=== PATIENT | female | born 1990 | race Caucasian/White ===

== ENCOUNTER 2017-10-09 23:41 | Emergency (ER) | payer OTHER, MEDICAID ==
[~2017-10-09] VITALS: Ht 165.1 cm; Wt 90.7 kg
[~2017-10-09 23:41] MED LIST: ACETAMINOPHEN-1 EAC1 PO; AMOXICILLIN 50500 MG PO; FLEXERIL PO; IBUPROFEN 800800 MG PO; LIDOCAINE VISC100 M1 SWISH&SPIT; MEDROLDOSEPACK PO; NORCO 5-325 TA1 EACH PO; PENICILLIN V P500 MG PO
[2017-10-10 00:41] LABS: ABSOLUTE BASOPHILS 0.1 thou/uL (0.0-0.2); ABSOLUTE EOSINOPHILS 0.3 thou/uL (0.0-0.7); ABSOLUTE MONOCYTES 0.7 thou/uL (0.0-1.2); ABSOLUTE NEUTROPHILS 10.6 thou/uL (1.6-8.1); BASOPHILS 0.7 %; EOSINOPHILS 1.8 %; HEMATOCRIT 42.5 % (37.0-47.0); HEMOGLOBIN 14.4 gm/dL (12.0-15.0); LYMPHOCYTES 20.5 %; MCH 30.2 pg (26.0-34.0); MCHC 33.8 g/dL (28.0-37.0); MCV 89.2 fL (80.0-100.0); MONOCYTES 4.6 %; MPV 9.6 fl. (7.2-11.1); NUCLEATED RBCS 0 /100WBC; PLATELET COUNT* 191 thou/uL (150-400); POLYS 72.4 %; RBC 4.76 mil/uL (4.20-5.00); RDW-CV 13.2 % (10.5-14.5); WBC 14.7 thou/uL (4.0-11.0)
[2017-10-10 00:43] LABS: CALCIUM 9.1 mg/dL (8.5-10.1); CREATININE 0.9 mg/dL (0.6-1.3); POTASSIUM 3.9 mmol/L (3.5-5.1)
[2017-10-10 01:12] LABS: INFLUENZA A ANTIGEN None Detected (None Detect); INFLUENZA B ANTIGEN None Detected (None Detect)
[2017-10-10 02:15] VITALS: BP 109/63
== END 2017-10-10 02:16 | disposition home or self-care (01) ==
LOC: M.ERS 23:41
PROVIDERS: Emergency Medicine
DX: R11.2 Nausea with vomiting, unspecified (principal); J06.9 Acute upper respiratory infection, unspecified; Z91.040 Latex allergy status; Z88.8 Allergy status to other drugs, medicaments and biological substances; Z88.2 Allergy status to sulfonamides

== ENCOUNTER 2017-10-17 15:19 | Emergency (ER) | payer OTHER, MEDICAID ==
[~2017-10-17] VITALS: Ht 165.1 cm; Wt 90.7 kg
[2017-10-17] MEDS ORDERED: IBUPROFEN 800800 M1 PO (15:28)
[2017-10-17] MEDS ORDERED: TESSALON PERLE100 MG PO (15:30)
[2017-10-17] MEDS ORDERED: DICLOFENAC SODI75 MG PO (15:30)
[2017-10-17] MEDS ORDERED: NITROFURANTOIN100 MG PO (15:31)
[2017-10-17] MEDS ORDERED: PREDNISONE 20 M20 MG PO (15:31)
[2017-10-17] MEDS ORDERED: FLEXERIL PO (15:31)
[2017-10-17 16:01] LABS: HEMATOCRIT 42.1 % (37.0-47.0); HEMOGLOBIN 14.4 gm/dL (12.0-15.0); MCH 30.4 pg (26.0-34.0); MCHC 34.2 g/dL (28.0-37.0); MCV 88.7 fL (80.0-100.0); MPV 9.2 fl. (7.2-11.1); RBC 4.75 mil/uL (4.20-5.00); RDW-CV 13.3 % (10.5-14.5); WBC 9.6 thou/uL (4.0-11.0)
[2017-10-17 16:10] LABS: CALCIUM 9.1 mg/dL (8.5-10.1); POTASSIUM 3.1 mmol/L (3.5-5.1)
[2017-10-17 17:06] VITALS: BP 122/79
--- NOTE | 2017-10-18 17:23 | EKG ---
[place] [address] ELECTROCARDIOGRAM REPORT Name: CASS BERNARDOCIJunior Chung Room: [facility]#: [id number] Admission: 10/17/17 Attend Phys: Discharge: 10/17/17 Date of : [birth year] Report #: [id number] THIS REPORT FOR: //name// [facility] ED Test Date: 2017-10-17 Test Time: 15:25:32 Pat Name: JONATHAN BERNARDO Department: Room: Gender: F Perinatal Nurse: ALBINA Ashton : 1990 Requested By: Jan Ceja Order Number: [id number] MD: Jesus Alberto Mosher Measurements Intervals [place] Rate: 82 P: 49 AR: 123 QRS: 65 QRSD: 97 T: 25 QT: 380 QTc: 444 Interpretive Statements Sinus rhythm Minimal ST depression, inferior leads No previous ECG available for comparison Electronically Signed On 10-18-2017 17:22:53 FINISH MIXER by Jesus Alberto Mosher [email or web address] <ELECTRONICALLY SIGNED> By: Jesus Alberto Mosher MD, [facility] 10/18/17 1722 1525 1525 Jesus Alberto Mosher MD, FACC /EPI
== END 2017-10-17 17:07 | disposition home or self-care (01) ==
LOC: M.ERS 15:19
PROVIDERS: Physician Assistant
DX: R55 Syncope and collapse (principal); F17.200 Nicotine dependence, unspecified, uncomplicated; Z90.89 Acquired absence of other organs; Z90.49 Acquired absence of other specified parts of digestive tract; Z91.040 Latex allergy status; Z88.2 Allergy status to sulfonamides; Z88.8 Allergy status to other drugs, medicaments and biological substances

== ENCOUNTER 2017-11-15 00:12 | Emergency (ER) | payer OTHER, MEDICAID ==
[~2017-11-15] VITALS: Ht 162.6 cm; Wt 90.7 kg
[~2017-11-15 00:12] MED LIST changes: +DICLOFENAC SODI75 MG PO; +IBUPROFEN 800800 M1 PO; +NITROFURANTOIN100 MG PO; +PREDNISONE 20 M20 MG PO; +TESSALON PERLE100 MG PO
[2017-11-15 00:26] LABS: URINE BILIRUBIN NEGATIVE (Negative); URINE BLOOD TRACE (Negative); URINE CLARITY CLEAR; URINE COLOR YELLOW; URINE GLUCOSE-RANDOM NEGATIVE (Negative); URINE KETONES NEGATIVE (Negative); URINE LEUKOCYTES-REFLEX TRACE (Negative); URINE NITRITE-REFLEX NEGATIVE (Negative); URINE PROTEIN NEGATIVE (Negative); URINE UROBILINOGEN 0.2 E.U./dl (0.2-1.0)
[2017-11-15 00:34] LABS: AMP/METHAMP POSITIVE (Negative); BARBITURATES Negative (Negative); BENZODIAZEPINES Negative (Negative); COCAINE Negative (Negative); METHADONE Negative (Negative); OPIATES Negative (Negative); PCP Negative (Negative); THC POSITIVE (Negative)
[2017-11-15 00:40] LABS: BACTERIA-REFLEX >30 Many /HPF (None Seen); CASTS None Seen /LPF (None Seen); CRYSTALS None Seen /LPF (None Seen); MUCUS 4-6 Moderate strn/LPF (None Seen); RENAL EPITHELIAL CELLS 0-3 Few /LPF (None Seen); SQUAMOUS 4-10 Moderate /LPF (0-3); TRANSITIONAL EPITHEL CELL 0-3 Few /LPF (None Seen); URINE RBC 3-10 Few /HPF (0-2); WBC CLUMPS Moderate (None Seen)
[2017-11-15] MEDS ORDERED: PREDNISONE50 MG PO (01:28)
[2017-11-15] MEDS ORDERED: DOXYCYCLINE 10100 M1 PO (01:28)
[2017-11-15 01:39] VITALS: BP 129/68
--- NOTE | 2017-11-15 11:03 | EKG ---
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1990 Requested By: Daina Hermosillo Order Number: [id number] MD: Dandre Middleton Measurements Intervals [place] Rate: 79 P: 38 SC: 110 QRS: 58 QRSD: 96 T: 8 QT: 365 QTc: 419 Interpretive Statements Sinus rhythm Borderline short SC interval Compared to ECG 10/17/2017 15:25:32 ST (T wave) deviation no longer present Electronically Signed On 11-15-2017 11:03:37 CDT by Dandre Middleton [email or web address] <ELECTRONICALLY SIGNED> By: Dandre Middleton MD, [facility] 11/15/17 1103 0024 0024 Dandre Middleton MD, FAC /EPI
== END 2017-11-15 01:39 | disposition home or self-care (01) ==
LOC: M.ERS 00:12
PROVIDERS: Emergency Medicine
DX: J40 Bronchitis, not specified as acute or chronic (principal); N39.0 Urinary tract infection, site not specified; F17.210 Nicotine dependence, cigarettes, uncomplicated; Z90.49 Acquired absence of other specified parts of digestive tract; Z91.040 Latex allergy status; Z88.0 Allergy status to penicillin; Z88.8 Allergy status to other drugs, medicaments and biological substances

== ENCOUNTER 2018-03-09 00:30 | Emergency (ER) | payer OTHER, MEDICAID ==
[~2018-03-09] VITALS: Ht 165.1 cm; Wt 90.7 kg
[~2018-03-09 00:30] MED LIST changes: +DOXYCYCLINE 10100 M1 PO; +PREDNISONE50 MG PO
[2018-03-09] MEDS ORDERED: VENTOLIN HFA 1818 GM INH (00:40)
[2018-03-09] MEDS ORDERED: NORCO 5-325 TA1 EACH PO (01:13)
[2018-03-09] MEDS ORDERED: AUGMENTIN 875-1 EACH PO (01:13)
[2018-03-09 01:31] VITALS: BP 154/81
[2018-03-09] MEDS ORDERED: CLEOCIN HCL150 M1 PO (18:59)
== END 2018-03-09 01:33 | disposition home or self-care (01) ==
LOC: M.ERS 00:30
DX: K08.89 Other specified disorders of teeth and supporting structures (principal); H66.91 Otitis media, unspecified, right ear; Z90.49 Acquired absence of other specified parts of digestive tract; F17.210 Nicotine dependence, cigarettes, uncomplicated; Z88.2 Allergy status to sulfonamides; Z91.040 Latex allergy status

== ENCOUNTER 2018-03-09 16:09 | Emergency (ER) | payer OTHER, MEDICAID ==
[~2018-03-09] VITALS: Ht 165.1 cm; Wt 90.7 kg
[~2018-03-09 16:09] MED LIST changes: +AUGMENTIN 875-1 EACH PO; +VENTOLIN HFA 1818 GM INH
[2018-03-09 17:31] LABS: ABSOLUTE EOSINOPHILS 0.1 thou/uL (0.0-0.7); ABSOLUTE LYMPHOCYTES 2.3 thou/uL (0.8-5.3); ABSOLUTE MONOCYTES 0.7 thou/uL (0.0-1.2); ABSOLUTE NEUTROPHILS 6.5 thou/uL (1.6-8.1); BASOPHILS 0.5 %; EOSINOPHILS 1.2 %; HEMATOCRIT 42.2 % (37.0-47.0); HEMOGLOBIN 14.2 gm/dL (12.0-15.0); LYMPHOCYTES 23.6 %; MCH 29.9 pg (26.0-34.0); MCHC 33.8 g/dL (28.0-37.0); MCV 88.3 fL (80.0-100.0); MPV 9.5 fl. (7.2-11.1); NUCLEATED RBCS 0 /100WBC; PLATELET COUNT* 176 thou/uL (150-400); POLYS 67.7 %; RBC 4.77 mil/uL (4.20-5.00); RDW-CV 13.5 % (10.5-14.5); WBC 9.6 thou/uL (4.0-11.0)
[2018-03-09 17:44] LABS: CALCIUM 8.3 mg/dL (8.5-10.1); CREATININE 0.8 mg/dL (0.6-1.3); POTASSIUM 3.5 mmol/L (3.5-5.1); TOTAL BILIRUBIN 0.4 mg/dL (<0.1-1.0); TOTAL PROTEIN 6.9 g/dL (6.4-8.2)
[2018-03-09] MEDS ORDERED: CLEOCIN HCL150 M1 PO (18:59)
[2018-03-09 20:09] VITALS: BP 109/68
== END 2018-03-09 20:12 | disposition home or self-care (01) ==
LOC: M.ERS 16:09
PROVIDERS: Nurse Practitioner Family
DX: K04.7 Periapical abscess without sinus (principal); L03.211 Cellulitis of face; F17.210 Nicotine dependence, cigarettes, uncomplicated; Z91.040 Latex allergy status; Z88.2 Allergy status to sulfonamides; Z88.8 Allergy status to other drugs, medicaments and biological substances; Z90.49 Acquired absence of other specified parts of digestive tract; Z86.14 Personal history of Methicillin resistant Staphylococcus aureus infection

== ENCOUNTER 2018-07-31 15:10 | Emergency (ER) | payer OTHER, MEDICAID ==
[~2018-07-31] VITALS: Ht 165.1 cm; Wt 95.3 kg
[~2018-07-31 15:10] MED LIST changes: +CLEOCIN HCL150 M1 PO
[2018-07-31 15:47] LABS: URINE BILIRUBIN NEGATIVE (Negative); URINE BLOOD NEGATIVE (Negative); URINE CLARITY CLEAR; URINE COLOR YELLOW; URINE GLUCOSE-RANDOM NEGATIVE (Negative); URINE KETONES NEGATIVE (Negative); URINE LEUKOCYTES TRACE (Negative); URINE NITRITE NEGATIVE (Negative); URINE PROTEIN NEGATIVE (Negative); URINE UROBILINOGEN 0.2 E.U./dl (0.2-1.0)
[2018-07-31 16:02] LABS: ABSOLUTE EOSINOPHILS 0.1 thou/uL (0.0-0.7); ABSOLUTE LYMPHOCYTES 2.6 thou/uL (0.8-5.3); ABSOLUTE MONOCYTES 0.5 thou/uL (0.0-1.2); ABSOLUTE NEUTROPHILS 6.8 thou/uL (1.6-8.1); BASOPHILS 0.3 %; EOSINOPHILS 0.9 %; HEMATOCRIT 37.6 % (37.0-47.0); HEMOGLOBIN 12.7 gm/dL (12.0-15.0); LYMPHOCYTES 25.8 %; MCH 30.5 pg (26.0-34.0); MCHC 33.9 g/dL (28.0-37.0); MCV 89.9 fL (80.0-100.0); MONOCYTES 5.5 %; MPV 9.4 fl. (7.2-11.1); NUCLEATED RBCS 0 /100WBC; PLATELET COUNT* 182 thou/uL (150-400); POLYS 67.5 %; RBC 4.18 mil/uL (4.20-5.00); RDW-CV 14.3 % (10.5-14.5)
[2018-07-31 16:07] LABS: BACTERIA None Seen /HPF (None Seen); CASTS None Seen /LPF (None Seen); CRYSTALS None Seen /LPF (None Seen); SQUAMOUS 0-3 Few /LPF (0-3); URINE RBC None Seen /HPF (0-2); URINE WBC None Seen /HPF (0-5)
[2018-07-31 16:11] LABS: CREATININE 0.7 mg/dL (0.6-1.3); POTASSIUM 3.5 mmol/L (3.5-5.1)
[2018-07-31] MEDS ORDERED: ZOFRAN4 MG PO (17:16)
[2018-07-31 17:40] VITALS: BP 123/64
== END 2018-07-31 17:41 | disposition home or self-care (01) ==
LOC: M.ERS 15:10
PROVIDERS: Nurse Practitioner
DX: O21.0 Mild hyperemesis gravidarum (principal); O21.8 Other vomiting complicating pregnancy; F17.210 Nicotine dependence, cigarettes, uncomplicated; Z91.040 Latex allergy status; Z88.8 Allergy status to other drugs, medicaments and biological substances; Z88.2 Allergy status to sulfonamides; Z90.89 Acquired absence of other organs; Z90.49 Acquired absence of other specified parts of digestive tract; Z3A.08 8 weeks gestation of pregnancy

== ENCOUNTER 2018-08-15 05:01 | Emergency (ER) | payer OTHER, MEDICAID ==
[~2018-08-15] VITALS: Ht 162.6 cm; Wt 94.8 kg
[~2018-08-15 05:01] MED LIST changes: +ZOFRAN4 MG PO
[2018-08-15] MEDS ORDERED: PRENATAL (05:45)
[2018-08-15 06:30] LABS: URINE BILIRUBIN NEGATIVE (Negative); URINE BLOOD TRACE (Negative); URINE CLARITY CLEAR; URINE COLOR YELLOW; URINE GLUCOSE-RANDOM NEGATIVE (Negative); URINE KETONES NEGATIVE (Negative); URINE NITRITE-REFLEX NEGATIVE (Negative); URINE PROTEIN NEGATIVE (Negative); URINE UROBILINOGEN 0.2 E.U./dl (0.2-1.0)
[2018-08-15 06:37] LABS: URINE LEUKOCYTES-REFLEX 3+ (Negative)
[2018-08-15 06:47] LABS: BACTERIA-REFLEX 1-9 Few /HPF (None Seen); CASTS None Seen /LPF (None Seen); CRYSTALS None Seen /LPF (None Seen); MUCUS None Seen strn/LPF (None Seen); SQUAMOUS 4-10 Moderate /LPF (0-3); URINE RBC 0-2 Rare /HPF (0-2); URINE WBC-REFLEX 6-15 Few /HPF (0-5)
[2018-08-15 06:52] LABS: ABSOLUTE EOSINOPHILS 0.2 thou/uL (0.0-0.7); ABSOLUTE LYMPHOCYTES 1.7 thou/uL (0.8-5.3); ABSOLUTE MONOCYTES 0.6 thou/uL (0.0-1.2); BASOPHILS 0.3 %; HEMOGLOBIN 12.4 gm/dL (12.0-15.0); LYMPHOCYTES 22.3 %; MCH 30.6 pg (26.0-34.0); MCHC 34.5 g/dL (28.0-37.0); MCV 88.7 fL (80.0-100.0); MONOCYTES 7.4 %; MPV 9.3 fl. (7.2-11.1); NUCLEATED RBCS 0 /100WBC; PLATELET COUNT* 176 thou/uL (150-400); RBC 4.05 mil/uL (4.20-5.00); RDW-CV 13.9 % (10.5-14.5); WBC 7.4 thou/uL (4.0-11.0)
[2018-08-15 07:11] LABS: CALCIUM 8.6 mg/dL (8.5-10.1); CREATININE 0.6 mg/dL (0.6-1.3); POTASSIUM 3.5 mmol/L (3.5-5.1)
[2018-08-15 07:15] LABS: ALBUMIN 2.9 g/dL (3.4-5.0); TOTAL BILIRUBIN 0.3 mg/dL (<0.1-1.0); TOTAL PROTEIN 6.7 g/dL (6.4-8.2)
[2018-08-15] MEDS ORDERED: KEFLEX500 M1 PO (08:52)
[2018-08-15 08:56] VITALS: BP 116/57
== END 2018-08-15 08:56 | disposition home or self-care (01) ==
LOC: M.ERS 05:01
PROVIDERS: Personal Emergency Response Attendant
DX: O99.511 Diseases of the respiratory system complicating pregnancy, first trimester (principal); Z3A.13 13 weeks gestation of pregnancy; J06.9 Acute upper respiratory infection, unspecified; O23.41 Unspecified infection of urinary tract in pregnancy, first trimester; Z90.49 Acquired absence of other specified parts of digestive tract; F17.210 Nicotine dependence, cigarettes, uncomplicated; Z88.2 Allergy status to sulfonamides; Z91.040 Latex allergy status

== ENCOUNTER 2018-08-20 15:23 | Emergency (ER) | payer OTHER, MEDICAID ==
[~2018-08-20] VITALS: Ht 162.6 cm; Wt 94.8 kg
[~2018-08-20 15:23] MED LIST changes: +KEFLEX500 M1 PO; +PRENATAL
[2018-08-20] MEDS ORDERED: PROMS25 WY RECTAL (15:37)
[2018-08-20 16:01] LABS: URINE BILIRUBIN NEGATIVE (Negative); URINE BLOOD NEGATIVE (Negative); URINE CLARITY CLEAR; URINE COLOR YELLOW; URINE GLUCOSE-RANDOM NEGATIVE (Negative); URINE KETONES NEGATIVE (Negative); URINE LEUKOCYTES-REFLEX 1+ (Negative); URINE NITRITE-REFLEX NEGATIVE (Negative); URINE PROTEIN NEGATIVE (Negative); URINE SPECIFIC GRAVITY <= 1.005 (1.005-1.030); URINE UROBILINOGEN 0.2 E.U./dl (0.2-1.0)
[2018-08-20 16:15] LABS: MUCUS None Seen strn/LPF (None Seen); SQUAMOUS >10 Many /LPF (0-3)
[2018-08-20 16:15] LABS: ABSOLUTE BASOPHILS 0.1 thou/uL (0.0-0.2); ABSOLUTE EOSINOPHILS 0.1 thou/uL (0.0-0.7); ABSOLUTE LYMPHOCYTES 2.6 thou/uL (0.8-5.3); ABSOLUTE MONOCYTES 0.4 thou/uL (0.0-1.2); ABSOLUTE NEUTROPHILS 6.1 thou/uL (1.6-8.1); BASOPHILS 0.6 %; HEMATOCRIT 38.1 % (37.0-47.0); LYMPHOCYTES 27.9 %; MCH 30.6 pg (26.0-34.0); MCHC 34.2 g/dL (28.0-37.0); MCV 89.3 fL (80.0-100.0); MONOCYTES 4.8 %; MPV 9.3 fl. (7.2-11.1); NUCLEATED RBCS 0 /100WBC; PLATELET COUNT* 194 thou/uL (150-400); POLYS 65.7 %; RBC 4.26 mil/uL (4.20-5.00); RDW-CV 13.7 % (10.5-14.5); WBC 9.2 thou/uL (4.0-11.0)
[2018-08-20 16:16] LABS: CASTS None Seen /LPF (None Seen); CRYSTALS None Seen /LPF (None Seen); URINE WBC-REFLEX 0-5 Rare /HPF (0-5)
[2018-08-20 16:17] LABS: URINE RBC None Seen /HPF (0-2)
[2018-08-20 16:22] LABS: ANION GAP 10 mmol/L (7-16); BUN 4 mg/dL (7-18); CALCIUM 8.8 mg/dL (8.5-10.1); CHLORIDE 104 mmol/L (98-107); CO2 25 mmol/L (21-32); CREATININE 0.7 mg/dL (0.6-1.3); GLUCOSE 79 mg/dL (70-99); POTASSIUM 3.4 mmol/L (3.5-5.1); SODIUM 139 mmol/L (136-145)
[2018-08-20 16:29] LABS: ALBUMIN 3.2 g/dL (3.4-5.0); ALKALINE PHOSPHATASE 71 U/L (46-116); LIPASE 110 U/L (73-393); SGOT 16 U/L (15-37); SGPT 23 U/L (30-65); TOTAL BILIRUBIN 0.1 mg/dL (<0.1-1.0); TOTAL PROTEIN 7.5 g/dL (6.4-8.2); TROPONIN-I LEVEL <0.06 ng/mL (<0.06)
[2018-08-20] MEDS ORDERED: MACROBID 100 M100 M2 PO (18:30)
[2018-08-20] MEDS ORDERED: VENTOLIN HFA 1818 GM INH (18:34)
[2018-08-20] MEDS ORDERED: VITAMIN B-625 MG PO (18:37)
[2018-08-20] MEDS ORDERED: NIGHTTIME SLEEP25 M1 PO (18:37)
[2018-08-20 18:54] VITALS: BP 112/39
--- NOTE | 2018-08-21 13:44 | EKG ---
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 : 1990 Requested By: Viviane Grant Order Number: [id number] MD: Dandre Middleton Measurements Intervals [place] Rate: 79 P: 55 [place]: 123 QRS: 58 QRSD: 98 T: 17 QT: 380 QTc: 436 Interpretive Statements Sinus arrhythmia Compared to ECG 11/15/2017 00:24:42 Sinus rhythm no longer present Electronically Signed On 08-21-2018 13:43:50 SYSTEM INTEGRATION ENGINEER by Dandre Middleton [email or web address] <ELECTRONICALLY SIGNED> By: Dandre Middleton MD, [facility] 08/21/18 1343 D: [id number] Dandre Middleton MD, FACC /EPI
== END 2018-08-20 18:54 | disposition home or self-care (01) ==
LOC: M.ERS 15:23
PROVIDERS: Nurse Practitioner Family
DX: O34.81 Maternal care for other abnormalities of pelvic organs, first trimester (principal); O23.41 Unspecified infection of urinary tract in pregnancy, first trimester; O99.511 Diseases of the respiratory system complicating pregnancy, first trimester; N83.201 Unspecified ovarian cyst, right side; J20.9 Acute bronchitis, unspecified; F17.210 Nicotine dependence, cigarettes, uncomplicated; Z3A.14 14 weeks gestation of pregnancy; Z90.49 Acquired absence of other specified parts of digestive tract; Z90.89 Acquired absence of other organs; Z91.041 Radiographic dye allergy status; Z88.2 Allergy status to sulfonamides; Z88.8 Allergy status to other drugs, medicaments and biological substances

== ENCOUNTER 2018-11-11 13:39 | Emergency (ER) | payer OTHER, MEDICAID ==
[~2018-11-11] VITALS: Ht 165.1 cm; Wt 98.0 kg
[~2018-11-11 13:39] MED LIST changes: +MACROBID 100 M100 M2 PO; +NIGHTTIME SLEEP25 M1 PO; +PROMS25 WY RECTAL; +VITAMIN B-625 MG PO
[2018-11-11 14:17] LABS: ABSOLUTE LYMPHOCYTES 1.3 thou/uL (0.8-5.3); ABSOLUTE MONOCYTES 0.8 thou/uL (0.0-1.2); ABSOLUTE NEUTROPHILS 8.6 thou/uL (1.6-8.1); BASOPHILS 0.4 %; EOSINOPHILS 0.3 %; HEMATOCRIT 34.7 % (37.0-47.0); LYMPHOCYTES 11.9 %; MCH 30.7 pg (26.0-34.0); MCHC 34.6 g/dL (28.0-37.0); MCV 88.8 fL (80.0-100.0); MONOCYTES 7.4 %; MPV 9.9 fl. (7.2-11.1); NUCLEATED RBCS 0 /100WBC; PLATELET COUNT* 184 thou/uL (150-400); RBC 3.91 mil/uL (4.20-5.00); RDW-CV 13.3 % (10.5-14.5); WBC 10.7 thou/uL (4.0-11.0)
[2018-11-11 15:16] LABS: ALBUMIN 2.9 g/dL (3.4-5.0); ALKALINE PHOSPHATASE 97 U/L (46-116); ANION GAP 15 mmol/L (7-16); BUN 3 mg/dL (7-18); CALCIUM 8.5 mg/dL (8.5-10.1); CHLORIDE 102 mmol/L (98-107); CO2 19 mmol/L (21-32); CREATININE 0.8 mg/dL (0.6-1.3); GLUCOSE 91 mg/dL (70-99); LIPASE 58 U/L (73-393); POTASSIUM 3.1 mmol/L (3.5-5.1); SGOT 16 U/L (15-37); SGPT 14 U/L (30-65); SODIUM 136 mmol/L (136-145); TOTAL BILIRUBIN 0.2 mg/dL (<0.1-1.0); TOTAL PROTEIN 7.3 g/dL (6.4-8.2); TROPONIN-I LEVEL <0.06 ng/mL (<0.06)
[2018-11-11 15:16] LABS: INFLUENZA B ANTIGEN None Detected (None Detect)
[2018-11-11 15:20] LABS: URINE BILIRUBIN NEGATIVE (Negative); URINE BLOOD NEGATIVE (Negative); URINE CLARITY CLEAR; URINE COLOR YELLOW; URINE GLUCOSE-RANDOM NEGATIVE (Negative); URINE KETONES NEGATIVE (Negative); URINE LEUKOCYTES-REFLEX NEGATIVE (Negative); URINE NITRITE-REFLEX NEGATIVE (Negative); URINE PROTEIN NEGATIVE (Negative); URINE SPECIFIC GRAVITY <= 1.005 (1.005-1.030); URINE UROBILINOGEN 0.2 E.U./dl (0.2-1.0)
[2018-11-11 15:38] LABS: AMP/METHAMP Negative (Negative); BARBITURATES Negative (Negative); BENZODIAZEPINES Negative (Negative); COCAINE Negative (Negative); METHADONE Negative (Negative); OPIATES Negative (Negative); PCP Negative (Negative); THC POSITIVE (Negative)
[2018-11-11 15:50] VITALS: BP 111/70
--- NOTE | 2018-11-12 08:56 | EKG ---
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
== END 2018-11-11 16:00 | disposition short-term general hospital (02) ==
LOC: M.ERS 13:39
PROVIDERS: Nurse Practitioner Family
DX: O99.512 Diseases of the respiratory system complicating pregnancy, second trimester (principal); J10.1 Influenza due to other identified influenza virus with other respiratory manifestations; R19.7 Diarrhea, unspecified; R10.30 Lower abdominal pain, unspecified; F17.210 Nicotine dependence, cigarettes, uncomplicated; Z91.040 Latex allergy status; Z88.8 Allergy status to other drugs, medicaments and biological substances; Z88.2 Allergy status to sulfonamides; Z90.89 Acquired absence of other organs; Z90.49 Acquired absence of other specified parts of digestive tract; Z3A.25 25 weeks gestation of pregnancy

== ENCOUNTER 2019-12-23 17:59 | Emergency (ER) | payer OTHER ==
[~2019-12-23] VITALS: Ht 165.1 cm; Wt 95.3 kg
[2019-12-23 18:20] LABS: URINE BILIRUBIN NEGATIVE (Negative); URINE BLOOD TRACE (Negative); URINE CLARITY CLEAR; URINE COLOR YELLOW; URINE GLUCOSE-RANDOM NEGATIVE (Negative); URINE KETONES NEGATIVE (Negative); URINE LEUKOCYTES-REFLEX 1+ (Negative); URINE NITRITE-REFLEX NEGATIVE (Negative); URINE PROTEIN NEGATIVE (Negative); URINE SPECIFIC GRAVITY >= 1.030 (1.005-1.030); URINE UROBILINOGEN 0.2 E.U./dl (0.2-1.0)
[2019-12-23 18:28] LABS: BACTERIA-REFLEX >30 Many /HPF (None Seen); CASTS None Seen /LPF (None Seen); MUCUS 0-3 Light strn/LPF (None Seen); SQUAMOUS >10 Many /LPF (0-3); URINE RBC 0-2 Rare /HPF (0-2)
[2019-12-23 18:29] LABS: CRYSTALS None Seen /LPF (None Seen)
[2019-12-23 18:34] LABS: ABSOLUTE BASOPHILS 0.1 thou/uL (0.0-0.2); ABSOLUTE EOSINOPHILS 0.2 thou/uL (0.0-0.7); ABSOLUTE LYMPHOCYTES 3.2 thou/uL (0.8-5.3); ABSOLUTE MONOCYTES 0.6 thou/uL (0.0-1.2); ABSOLUTE NEUTROPHILS 6.7 thou/uL (1.6-8.1); EOSINOPHILS 2.1 %; HEMATOCRIT 42.6 % (37.0-47.0); HEMOGLOBIN 14.3 gm/dL (12.0-15.0); LYMPHOCYTES 29.6 %; MCHC 33.6 g/dL (28.0-37.0); MCV 86.4 fL (80.0-100.0); MONOCYTES 5.4 %; MPV 9.9 fl. (7.2-11.1); NUCLEATED RBCS 0 /100WBC; PLATELET COUNT* 199 thou/uL (150-400); POLYS 61.9 %; RBC 4.93 mil/uL (4.20-5.00); RDW-CV 14.5 % (10.5-14.5); WBC 10.8 thou/uL (4.0-11.0)
[2019-12-23 18:41] LABS: CALCIUM 8.4 mg/dL (8.5-10.1); POTASSIUM 3.4 mmol/L (3.5-5.1)
[2019-12-23 18:45] LABS: ALBUMIN 3.7 g/dL (3.4-5.0); TOTAL BILIRUBIN 0.2 mg/dL (<0.1-1.0); TOTAL PROTEIN 7.3 g/dL (6.4-8.2)
[2019-12-23] MEDS ORDERED: DICLEGIS DR 101 EACH PO (19:16)
[2019-12-23] MEDS ORDERED: KEFLEX500 M1 PO (19:17)
[2019-12-23 19:43] VITALS: BP 132/74
== END 2019-12-23 19:43 | disposition home or self-care (01) ==
LOC: M.ERS 17:59
PROVIDERS: Physician Assistant
DX: O23.41 Unspecified infection of urinary tract in pregnancy, first trimester (principal); O21.9 Vomiting of pregnancy, unspecified; F17.210 Nicotine dependence, cigarettes, uncomplicated; Z3A.01 Less than 8 weeks gestation of pregnancy; Z90.49 Acquired absence of other specified parts of digestive tract; Z91.040 Latex allergy status; Z91.048 Other nonmedicinal substance allergy status; Z88.2 Allergy status to sulfonamides

== ENCOUNTER 2020-06-18 17:10 | Emergency (ER) | payer OTHER ==
[~2020-06-18] VITALS: Ht 162.6 cm; Wt 99.8 kg
[~2020-06-18 17:10] MED LIST changes: +DICLEGIS DR 101 EACH PO
[2020-06-18] MEDS ORDERED: FLEXERIL PO (17:34)
[2020-06-18] MEDS ORDERED: NORCO 5-325 TA1 EAC2 PO (17:34)
[2020-06-18] MEDS ORDERED: PREDNISONE 20 M20 M1 PO (17:34)
[2020-06-18 17:43] VITALS: BP 138/82
== END 2020-06-18 17:45 | disposition home or self-care (01) ==
LOC: M.ERS 17:10
DX: M54.32 Sciatica, left side (principal); F17.210 Nicotine dependence, cigarettes, uncomplicated; Z88.2 Allergy status to sulfonamides; Z88.8 Allergy status to other drugs, medicaments and biological substances; Z91.040 Latex allergy status; Z90.49 Acquired absence of other specified parts of digestive tract; Z90.89 Acquired absence of other organs

== ENCOUNTER 2020-11-02 18:48 | Emergency (ER) | payer OTHER ==
[~2020-11-02] VITALS: Ht 165.1 cm; Wt 95.3 kg
[~2020-11-02 18:48] MED LIST changes: +NORCO 5-325 TA1 EAC2 PO; +PREDNISONE 20 M20 M1 PO
[2020-11-02 20:35] VITALS: BP 133/91
[2020-11-02] MEDS ORDERED: GENTAK5 ML EA. EAR (20:35)
[2020-11-02] MEDS ORDERED: AMOXICILLIN875 MG PO (20:35)
[2020-11-02] MEDS ORDERED: ACETAMINOPHEN-1 EAC2 PO (20:35)
== END 2020-11-02 20:35 | disposition home or self-care (01) ==
LOC: M.ERS 18:48
DX: H61.23 Impacted cerumen, bilateral (principal); H66.91 Otitis media, unspecified, right ear; F17.210 Nicotine dependence, cigarettes, uncomplicated; Z90.89 Acquired absence of other organs; Z90.49 Acquired absence of other specified parts of digestive tract; Z91.040 Latex allergy status; Z88.8 Allergy status to other drugs, medicaments and biological substances; Z88.2 Allergy status to sulfonamides

== ENCOUNTER 2020-12-17 17:51 | Emergency (ER) | payer OTHER ==
[~2020-12-17] VITALS: Ht 165.1 cm; Wt 95.3 kg
[~2020-12-17 17:51] MED LIST changes: +ACETAMINOPHEN-1 EAC2 PO; +AMOXICILLIN875 MG PO; +GENTAK5 ML EA. EAR
[2020-12-17] MEDS ORDERED: IBUPROFEN 600600 M1 PO ×2 (19:07→19:43)
[2020-12-17] MEDS ORDERED: NORCO5 PO (19:07)
[2020-12-17 19:26] VITALS: BP 132/82
[2020-12-17] MEDS ORDERED: HYDROCODON-ACE1 EAC7 PO ×2 (19:34→19:43)
== END 2020-12-17 19:27 | disposition home or self-care (01) ==
LOC: M.ERS 17:51
DX: M25.522 Pain in left elbow (principal); M79.632 Pain in left forearm; F17.210 Nicotine dependence, cigarettes, uncomplicated; Z91.040 Latex allergy status; Z88.2 Allergy status to sulfonamides; Z88.8 Allergy status to other drugs, medicaments and biological substances; Z90.89 Acquired absence of other organs; Z90.49 Acquired absence of other specified parts of digestive tract

== ENCOUNTER 2021-05-03 15:20 | Emergency (ER) | payer OTHER, MEDICAID ==
[~2021-05-03] VITALS: Ht 165.1 cm; Wt 88.5 kg
[~2021-05-03 15:20] MED LIST changes: +HYDROCODON-ACE1 EAC7 PO; +IBUPROFEN 600600 M1 PO; +NORCO5 PO
[2021-05-03] MEDS ORDERED: CEPHALEXIN500 MG PO (15:52)
[2021-05-03 15:58] VITALS: BP 133/75
== END 2021-05-03 15:59 | disposition home or self-care (01) ==
LOC: M.ERS 15:20
DX: S90.424A Blister (nonthermal), right lesser toe(s), initial encounter (principal); F17.210 Nicotine dependence, cigarettes, uncomplicated; Z90.89 Acquired absence of other organs; Z90.49 Acquired absence of other specified parts of digestive tract; Z91.040 Latex allergy status; Z88.8 Allergy status to other drugs, medicaments and biological substances; Z88.2 Allergy status to sulfonamides; X58.XXXA Exposure to other specified factors, initial encounter; Y93.89 Activity, other specified; Y92.89 Other specified places as the place of occurrence of the external cause; Y99.8 Other external cause status

== ENCOUNTER 2021-05-09 00:40 | Emergency (ER) | payer OTHER, MEDICAID ==
[~2021-05-09] VITALS: Ht 165.1 cm; Wt 95.3 kg
[~2021-05-09 00:40] MED LIST changes: +CEPHALEXIN500 MG PO
[2021-05-09] MEDS ORDERED: PROMETHAZINE-C473 ML PO (02:01)
[2021-05-09] MEDS ORDERED: ALLERGY RE12.5 MG/5 PO (02:01)
[2021-05-09 02:22] VITALS: BP 135/71
[2021-05-09] MEDS ORDERED: PROMETH-CODEIN 65 ML PO (02:42)
[2021-05-09] MEDS ORDERED: BANOPHEN12.5 MG/5 PO (02:42)
== END 2021-05-09 02:22 | disposition home or self-care (01) ==
LOC: M.ERS 00:40
DX: J06.9 Acute upper respiratory infection, unspecified (principal); Z20.822 Contact with and (suspected) exposure to COVID-19; F17.210 Nicotine dependence, cigarettes, uncomplicated; Z90.89 Acquired absence of other organs; Z90.49 Acquired absence of other specified parts of digestive tract; Z79.2 Long term (current) use of antibiotics; Z91.040 Latex allergy status; Z88.2 Allergy status to sulfonamides

== ENCOUNTER 2021-07-27 16:26 | Emergency (ER) | payer OTHER, MEDICAID ==
[~2021-07-27] VITALS: Ht 165.1 cm; Wt 97.5 kg
[~2021-07-27 16:26] MED LIST changes: +ALLERGY RE12.5 MG/5 PO; +BANOPHEN12.5 MG/5 PO; +PROMETH-CODEIN 65 ML PO; +PROMETHAZINE-C473 ML PO
[2021-07-27] MEDS ORDERED: ENBRACE HR SOF1 EACH PO (16:43)
[2021-07-27 16:56] LABS: URINE BILIRUBIN NEGATIVE (Negative); URINE BLOOD TRACE (Negative); URINE CLARITY HAZY; URINE COLOR YELLOW; URINE GLUCOSE-RANDOM NEGATIVE (Negative); URINE KETONES NEGATIVE (Negative); URINE LEUKOCYTES-REFLEX TRACE (Negative); URINE NITRITE-REFLEX NEGATIVE (Negative); URINE PROTEIN NEGATIVE (Negative); URINE SPECIFIC GRAVITY >= 1.030 (1.005-1.030)
[2021-07-27 16:57] LABS: SQUAMOUS >10 Many /LPF (0-3); URINE WBC-REFLEX 6-15 Few /HPF (0-5)
[2021-07-27 16:58] LABS: BACTERIA-REFLEX None Seen /HPF (None Seen); CASTS None Seen /LPF (None Seen); CRYSTALS None Seen /LPF (None Seen); URINE RBC None Seen /HPF (0-2)
[2021-07-27 18:37] VITALS: BP 128/78
== END 2021-07-27 18:37 | disposition left against medical advice (07) ==
LOC: M.ERS 16:26
PROVIDERS: Physician Assistant
DX: O21.9 Vomiting of pregnancy, unspecified (principal); Z3A.01 Less than 8 weeks gestation of pregnancy; Z53.21 Procedure and treatment not carried out due to patient leaving prior to being seen by health care provider